=== PATIENT | female | born 1940 | race Caucasian/White ===

== ENCOUNTER 2017-10-10 10:48 | Observation (INO) | payer MEDICARE ==
[~2017-10-10] VITALS: Ht 157.5 cm; Wt 74.3 kg
[2017-10-10] MEDS: SODIUM CHLORIDE 0.9% 1,000 ML IV SCH ×2 (11:48→19:48)
[2017-10-10] MEDS ORDERED: CEFAZOLIN PMX 1GM/50ML 50 ML IVPB ONE (12:00)
[2017-10-10] MEDS ORDERED: LOSA50TA6 PO (12:01)
[2017-10-10] MEDS ORDERED: METO-93 PO (12:02)
[2017-10-10] MEDS ORDERED: APIX5TAB PO (12:02)
[2017-10-10 12:04] VITALS: BP 142/77
[2017-10-10] MEDS ORDERED: NITR0.6T4 SL (12:04)
[2017-10-10] MEDS ORDERED: FENTANYL PF 100 MCG/2ML ONE (12:28)
[2017-10-10] MEDS ORDERED: MIDAZOLAM 1 MG/ML, 2ML ONE (12:28)
[2017-10-10] MEDS ORDERED: LIDOCAINE/PF 1%, 30ML ONE (12:29)
[2017-10-10] MEDS ORDERED: CEFAZOLIN PMX 1GM/50ML 50 ML ONE (12:29)
[2017-10-10] MEDS ORDERED: CEFAZOLIN 1,000 MG ONE (12:29)
[2017-10-10] MEDS ORDERED: HYDROcodone/APAP 5/325 TABLET PO PRN (14:00)
[2017-10-10] MEDS ORDERED: CEFAZOLIN PMX 1GM/50ML 50 ML IVPB SCH ×2 (14:00→22:00)
[2017-10-10] MEDS ORDERED: ONDANSETRON 2MG/ML, 2ML IV PRN (14:00)
[2017-10-10] MEDS ORDERED: ZOLPIDEM 5MG TABLET PO PRN (14:00)
[2017-10-10] MEDS ORDERED: ACETAMINOPHEN 325 MG TABLET PO PRN (14:00)
[2017-10-10 14:03] VITALS: BP 150/83
[2017-10-10] MEDS ORDERED: NITROGLYCERIN 0.4 MG BOTTLE (25 TABS) SL PRN (15:00)
[2017-10-10 18:59] VITALS: BP 146/84
[2017-10-10] MEDS: SODIUM CHLORIDE FLUSH 10ML SYR IVF SCH (22:46)
[2017-10-11 00:34] VITALS: BP 146/82
[2017-10-11] MEDS: SODIUM CHLORIDE 0.9% 1,000 ML IV SCH ×2 (03:48→11:16)
[2017-10-11] MEDS: SODIUM CHLORIDE FLUSH 10ML SYR IVF SCH (08:26)
[2017-10-11 08:30] VITALS: BP 149/80
[2017-10-11] MEDS ORDERED: LOSARTAN 50MG TABLET PO SCH (09:00)
== END 2017-10-11 10:50 | disposition home or self-care (01) ==
LOC: CACL 10:48 → 5SO 13:50 → DCLOUNGE 10-11 10:37
PROVIDERS: ADMIT Internal Medicine Cardiovascular Disease; ATTEND Internal Medicine Cardiovascular Disease
DX: I48.2 Chronic atrial fibrillation (principal); I42.9 Cardiomyopathy, unspecified; I49.5 Sick sinus syndrome; K21.9 Gastro-esophageal reflux disease without esophagitis; I10 Essential (primary) hypertension; E78.5 Hyperlipidemia, unspecified; M19.90 Unspecified osteoarthritis, unspecified site; Z95.0 Presence of cardiac pacemaker
CPT/HCPCS: 33207; 33233; 36005; 71045; 96365; 99156; 99157; C1786; C1892; G0378; J0690; J2250; J3010; J3490; Q9967